=== PATIENT | male | born 1960 | race Caucasian/White ===

== ENCOUNTER 2016-11-27 11:10 | Outpatient (CLI) | payer OTHER ==
[2014-07-10 11:15] VITALS: BP 136/81
[2016-11-27 11:23] LABS: BASOPHILS % 0.5 (0.0-1.5); EOSINOPHILS % 4.3 % (0.0-6.8); MEAN CORPUSCULAR HEMOGLOBIN 29.8 pg (28.0-34.0); MONOCYTES % 5.1 % (0.0-11.0); NEUTROPHILS # 6.2 # k/uL (1.4-7.7)
[2016-11-27 12:15] LABS: eGFR (African) > 60; eGFR (Non-African) > 60
== END 2016-11-27 11:11 ==
LOC: LAB 11:10
PROVIDERS: ATTEND Family Medicine
DX: R73.9 Hyperglycemia, unspecified (principal); R53.83 Other fatigue
CPT/HCPCS: 36415; 80053; 83036; 84443; 85025

== ENCOUNTER 2018-02-04 02:54 | Emergency (ER) | payer OTHER ==
[2018-02-04] MEDS: KETOROLAC TROMETHAMINE 30 MG/1ML VIAL IVP ONE (03:22)
[2018-02-04] MEDS: ONDANSETRON HCL/PF 4 MG/ 2ML VIAL IVP ONE (03:22)
[2018-02-04] MEDS: ORPHENADRINE CITRATE 60 MG/2ML IV ONE (03:30)
[2018-02-04 03:45] LABS: BASOPHILS % 0.6 (0.0-1.5); MEAN CORPUSCULAR HEMOGLOBIN 28.8 pg (28.0-34.0); NEUTROPHILS # 8.1 # k/uL (1.4-7.7)
[2018-02-04] MEDS: 0.9 % SODIUM CHLORIDE 1,000 ML IV ONE (03:47)
--- NOTE | 2018-02-04 03:53 | ED Physician Documentation ---
General Adult - HISTORIAN Historian: patient - HPI Stated Complaint: left flank pain n/v/d Chief Complaint: General Adult Additional Information: Awakened from sleep at about 0100 by L flank pain. Thought at first it was muscle pain. Quite intense, constant, waxes and wanes. Does not radiate. Never had pain like this before. Nausea and retching. 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 No blood in urine. Takes 10 mg Lisinopril daily. No other modifying factors or associated events. - ROS CONST: denies: fever - PAST HX Past History: hypertension Surgeries/Procedures: other (herniorraphy x9) Allergies/Adverse Reactions: Allergies Allergy/AdvReac Type Severity Reaction Status Date / Time No Known Drug Allergies Allergy Verified 02/04/18 03:11 - SOCIAL HX Smoking History: non-smoker - FAMILY HX Family History: No - VITAL SIGNS Vital Signs: Vital Signs Temp Pulse Resp BP Pulse Ox 97.9 F 73 20 161/90 99 02/04/18 02:56 02/04/18 02:56 02/04/18 02:56 02/04/18 02:56 02/04/18 02:56 - REVIEWED ASSESSMENTS Nursing Assessment Reviewed: Yes Vitals Reviewed: Yes Progress - Progress Progress: Report Submission Date: Feb 04, 2018 5:19:54 AM CDT Patient Study Name: ZAHEER HIDALGO Date: Feb 04, 2018 3:49:11 AM CDT Modality Type: CT\SR Gender: M Description: CT ABD PELVIS W/O CO : 64 Institution: [facility] Physician: [facility] - [facility] Examination: CT Abdomen/pelvis History: LT FLANK PAIN, NAUSEA X 3 HOURS (Hx) Comparison exams: None available Technique: CT Abdomen/pelvis without IV protocol. Findings: Enlargement of the left kidney when compared with the right. Few 2 to 3 mm calyceal calcifications involving the right kidney. Faint 1 mm calyceal calcifications involving the left kidney. Dilation of the left ureter and intrarenal collecting system. No evidence for radiopaque density within the course of the left ureter. Right ureter without abnormal dilation. Scattered pelvic phleboliths. Liver, spleen, adrenals, pancreas, kidneys and gallbladder are without gross irregularity given exam technique. No gallstone. Abdominal aorta without aneurysm. Peripheral atherosclerotic disease. Cardiac silhouette is not enlarged. No pericardial effusion. Bowel unopacified limiting evaluation. No abnormal dilation. Stool within the large bowel limiting sensitivity. No mesenteric inflammatory changes or free fluid. Appendix is visualized and is without inflammatory changes. Bilateral inguinal region hernias. Prior surgery involving the right inguinal region. Osseous structures demonstrate degenerative changes. L2 vertebral body hemangioma. Lung bases demonstrate interstitial fullness. No effusion. Impression: Dilation of the left ureter with prominence of the left kidney. No identified radiopaque density within the ureter. Obstruction could be secondary to non radiopaque stone versus structure versus recently passed stone. Urology consultation recommended. Bilateral nephrolithiasis. No acute upper abdominal organ inflammatory process. No abnormal bowel dilation or inflammation. Inguinal hernias. Prior right inguinal surgery. No gallstone. Lung base interstitial fullness mild congestive edema. Effusion. Electronically signed on Feb 04, 2018 5:19:54 AM CDT by: aRmesh Nichole ED Results Lab/Radiology - Orders Orders: ED Orders Category Date Time Status Place IV Lock 1T Care 02/04/18 03:[address] ABD & PELVIS W/O CON Stat Exams 02/04/18 Ordered CBC/PLATELET/DIFF Routine Lab 02/04/18 03:35 Received URINALYSIS Routine Lab 02/04/18 Ordered 0.9 % Sodium Chloride [Normal Saline] 1,000 ml Med 02/04/18 03:19 Active IV Q1H Ketorolac Tromethamine [Toradol] Med 02/04/18 03:18 Discontinued 30 mg IVP NOW ONE Ondansetron HCl/Pf [Zofran 4 mg/2 ml] Med 02/04/18 03:18 Discontinued 4 mg IVP NOW ONE Orphenadrine Citrate [Norflex] Med 02/04/18 03:31 Discontinued 60 mg IV NOW ONE General Adult Physical Exam - PHYSICAL EXAM GENERAL APPEARANCE: moderate distress EENT: eye inspection normal, ENT inspection normal NECK: normal inspection, supple RESPIRATORY: no resp distress, breath sounds normal CVS: reg rate & rhythm, heart sounds normal ABDOMEN: soft, normal bowel sounds, no distension, tenderness (diffuse) BACK: normal inspection, no CVA tenderness, other (no vertebral tenderness) SKIN: warm/dry, normal color EXTREMITIES: no evidence of injury, no edema NEURO: CN's nml as tested, motor nml, sensation nml, cognition normal Discharge Clincal Impression: Kidney stone on left side Referrals: Michelle Garza MD [Primary Care Provider] - 2 Days Additional Instructions: Drink plenty of water. Continue your usual Flomax. See your provider or return to the ER if you have pain you cannot control. Condition: Good Disposition: 01 HOME, SELF-CARE Decision to Admit: NO Decision Time: 05:20
[2018-02-04] MEDS: PROMETHAZINE HCL 25 MG in 0.9 % SODIUM CHLORIDE 50 ML IV ONE (04:26)
[2018-02-04] MEDS: PROMETHAZINE HCL 25 MG/ML VIAL ONE (04:30)
[2018-02-04 05:21] LABS: TOTAL PROTEIN 6.8 g/dL (6.0-8.5)
[2018-02-04 05:43] VITALS: BP 151/88
[2018-02-04 07:05] LABS: EOSINOPHILS % 3.2 % (0.0-6.8); MONOCYTES % 6.9 % (0.0-11.0)
--- NOTE | 2018-02-04 08:42 | Diagnostic Imaging Report ---
[facility] [id number] [facility] [address] [place], [place]. [address] Report Submission Date: Feb 04, 2018 5:19:54 AM CDT Patient Study Name: ZAHEER HIDALGO Date: Feb 04, 2018 3:49:11 AM CDT Modality Type: CT\SR Gender: M Description: CT ABD PELVIS W/O CO : 64 Institution: [facility] Physician: [facility]RE[facility]OR Examination: CT Abdomen/pelvis History: LT FLANK PAIN, NAUSEA X 3 HOURS (Hx) Comparison exams: None available Technique: CT Abdomen/pelvis without IV protocol. Findings: Enlargement of the left kidney when compared with the right. Few 2 to 3 mm calyceal calcifications involving the right kidney. Faint 1 mm calyceal calcifications involving the left kidney. Dilation of the left ureter and intrarenal collecting system. No evidence for radiopaque density within the course of the left ureter. Right ureter without abnormal dilation. Scattered pelvic phleboliths. Liver, spleen, adrenals, pancreas, kidneys and gallbladder are without gross irregularity given exam technique. No gallstone. Abdominal aorta without aneurysm. Peripheral atherosclerotic disease. Cardiac silhouette is not enlarged. No pericardial effusion. Bowel unopacified limiting evaluation. No abnormal dilation. Stool within the large bowel limiting sensitivity. No mesenteric inflammatory changes or free fluid. Appendix is visualized and is without inflammatory changes. Bilateral inguinal region hernias. Prior surgery involving the right inguinal region. Osseous structures demonstrate degenerative changes. L2 vertebral body hemangioma. Lung bases demonstrate interstitial fullness. No effusion. Impression: Dilation of the left ureter with prominence of the left kidney. No identified radiopaque density within the ureter. Obstruction could be secondary to non radiopaque stone versus structure versus recently passed stone. Urology consultation recommended. Bilateral nephrolithiasis. No acute upper abdominal organ inflammatory process. No abnormal bowel dilation or inflammation. Inguinal hernias. Prior right inguinal surgery. No gallstone. Lung base interstitial fullness mild congestive edema. Effusion. Electronically signed on Feb 04, 2018 5:19:54 AM CDT by: Ramesh HOANG
== END 2018-02-04 05:35 | disposition home or self-care (01) ==
LOC: ED 02:54
DX: N20.0 Calculus of kidney (principal)
CPT/HCPCS: 74176; 80053; 85025; J1885; J2360; J2405; J2550; J7030; 96365; 96367; 96375; S1016

== ENCOUNTER 2018-06-18 09:01 | Outpatient (CLI) | payer OTHER ==
[2018-06-18 09:59] LABS: eGFR (Non-African) > 60
== END 2018-06-18 09:03 ==
LOC: LAB 09:01
PROVIDERS: ATTEND Family Medicine
DX: Z12.5 Encounter for screening for malignant neoplasm of prostate (principal); I10 Essential (primary) hypertension; R73.9 Hyperglycemia, unspecified
CPT/HCPCS: 36415; 80053; 80061; 83036; 84153